=== PATIENT | male | born 1990 | race Two or more races ===

== ENCOUNTER 2023-02-03 14:29 | Inpatient (IN) | payer OTHER ==
[~2023-02-03] VITALS: Ht 182.9 cm; Wt 147.9 kg
[2023-02-03] MEDS: FUROSEMIDE 40 MG/4 ML VIAL IV SCH (01:00)
[2023-02-03 15:27] LABS: BASOPHILS % (AUTO) 0.4 % (0.0-2.0); EOSINOPHILS # (AUTO) 0.1 K/uL (0.0-0.7); EOSINOPHILS % (AUTO) 0.7 % (0.0-6.0); HEMATOCRIT 47 % (39-51); HEMOGLOBIN 16.2 g/dL (13.5-17.5); LYMPHOCYTES % (AUTO) 26.4 % (20.0-44.0); MEAN CORPUSCULAR HEMOGLOBIN 34 PG (26.0-33.0); MEAN CORPUSCULAR HGB CONC 34 g/dl (31.0-36.0); MEAN CORPUSCULAR VOLUME 101 fL (80-96); MONOCYTES # (AUTO) 1.7 K/uL (0.1-1.30); MONOCYTES % (AUTO) 22.1 % (2.0-12.0); NEUTROPHILS # (AUTO) 3.9 K/uL (1.8-8.9); NEUTROPHILS % (AUTO) 50.4 % (43.0-81.0); PLATELET COUNT (AUTO) 269 K/uL (150-450); RED BLOOD CELL COUNT(AUTO) 4.71 MIL/uL (4.5-6.0); WHITE BLOOD COUNT (AUTO) 7.7 K/uL (4.3-11.0)
[2023-02-03 15:48] LABS: CALCIUM, SERUM 9.3 mg/dL (8.5-10.1); CARBON DIOXIDE 26 mmol/L (21-32); CHLORIDE 101 mmol/L (98-107); CREATININE 0.9 mg/dL (0.6-1.3); GLUCOSE 115 mg/dL (74-106); POTASSIUM 3.6 mmol/L (3.5-5.1); SODIUM SERUM 136 mmol/L (136-145); UREA NITROGEN, BLOOD 5 mg/dL (7-18)
[2023-02-03 16:02] LABS: NT-PRO BNP 30 pg/mL (0-125)
[2023-02-03 16:36] LABS: ANISOCYTOSIS 1+; LYMPHOCYTES % (MANUAL) 26 % (16-48); MONOCYTES % (MANUAL) 16 % (0-11.0); NEUTROPHILS % (MANUAL) 57 (42-76); PLATELET ESTIMATE ADEQUATE; REACTIVE LYMPHOCYTES 1 % (0-0)
[2023-02-03] MEDS ORDERED: KETOROLAC TROMETHAMINE 15 MG/ML VIAL ONE (17:53)
[2023-02-03] MEDS ORDERED: KETOROLAC TROMETHAMINE INJ 30 MG/ML VIAL IV ONE (18:00)
[2023-02-03] MEDS ORDERED: IV NS 0.9% 1,000 ML BAG IV ONE (18:00)
[2023-02-03] MEDS ORDERED: IV NS 0.9% 250 ML IV ONE (19:44)
[2023-02-03] MEDS ORDERED: IOHEXOL-350 100 ML VIAL IV ONE ×2 (19:44)
[2023-02-03] MEDS ORDERED: CT SWABBABLE VALVE TRANS SET 1 EA INFUS.SET MC ONE (19:44)
[2023-02-03] MEDS ORDERED: METOPROLOL TARTRATE 25 MG TABLET PO ONE (23:00)
[2023-02-03] MEDS ORDERED: SULFAMETH/TRIMETH 800/160 MG 1 UDTAB TABLET PO ONE (23:00)
[2023-02-03] MEDS ORDERED: CEPHALEXIN MONOHYDRATE 500 MG CAPSULE PO ONE ×2 (23:00→23:18)
[2023-02-03] MEDS ORDERED: SULFAMETH/TRIMETH 800/160 MG 1 UDTAB TABLET ONE (23:18)
[2023-02-03] MEDS ORDERED: MAGNESIUM HYDROXIDE 30 ML UDC PO PRN (23:30)
[2023-02-03] MEDS ORDERED: MAG HYDROX/AL HYDROX/SIMETH 30 ML UDC PO PRN (23:30)
[2023-02-03] MEDS ORDERED: Z GUARD REMEDY 4 OZ OINT TP PRN (23:30)
[2023-02-03] MEDS ORDERED: ONDANSETRON HCL/PF 4 MG/2 ML VIAL IVP PRN (23:30)
[2023-02-04] MEDS ORDERED: FUROSEMIDE 40 MG/4 ML VIAL ONE (00:55)
[2023-02-04] MEDS ORDERED: METOPROLOL TARTRATE 25 MG TABLET ONE (00:55)
[2023-02-04 01:45] VITALS: BP 135/74; TEMP 98.2; O2SAT 98
[2023-02-04 02:00] VITALS: BP 135/94; TEMP 98.2; O2SAT 98
[2023-02-04 05:58] LABS: CALCIUM, SERUM 8.6 mg/dL (8.5-10.1); CREATININE 0.9 mg/dL (0.6-1.3); MAGNESIUM 2.5 mg/dL (1.8-2.4); PHOSPHORUS 3.4 mg/dL (2.5-4.9); POTASSIUM 4.1 mmol/L (3.5-5.1)
[2023-02-04 05:59] LABS: BASOPHILS % (AUTO) 0.2 % (0.0-2.0); EOSINOPHILS # (AUTO) 0.1 K/uL (0.0-0.7); EOSINOPHILS % (AUTO) 1.1 % (0.0-6.0); HEMATOCRIT 43 % (39-51); HEMOGLOBIN 14.9 g/dL (13.5-17.5); LYMPHOCYTES # (AUTO) 1.6 K/uL (0.8-4.8); LYMPHOCYTES % (AUTO) 25.6 % (20.0-44.0); MEAN CORPUSCULAR HEMOGLOBIN 35 PG (26.0-33.0); MEAN CORPUSCULAR HGB CONC 34 g/dl (31.0-36.0); MEAN CORPUSCULAR VOLUME 101 fL (80-96); MONOCYTES # (AUTO) 1.3 K/uL (0.1-1.30); MONOCYTES % (AUTO) 19.9 % (2.0-12.0); NEUTROPHILS # (AUTO) 3.4 K/uL (1.8-8.9); NEUTROPHILS % (AUTO) 53.2 % (43.0-81.0); PLATELET COUNT (AUTO) 210 K/uL (150-450); RED BLOOD CELL COUNT(AUTO) 4.28 MIL/uL (4.5-6.0); RED CELL DISTRIBUTION WIDTH 12.7 % (11.5-15.0); WHITE BLOOD COUNT (AUTO) 6.4 K/uL (4.3-11.0)
[2023-02-04 08:35] LABS: LYMPHOCYTES % (MANUAL) 26 % (16-48); MONOCYTES % (MANUAL) 20 % (0-11.0); NEUTROPHILS % (MANUAL) 54 (42-76); PLATELET ESTIMATE ADEQUATE
[2023-02-04 08:36] VITALS: BP 143/86; TEMP 98.6; O2SAT 97
[2023-02-04] MEDS ORDERED: METOPROLOL TARTRATE 25 MG TABLET PO SCH (09:00)
[2023-02-04] MEDS: FUROSEMIDE 40 MG/4 ML VIAL IV SCH (09:05)
[2023-02-04] MEDS: CEPHALEXIN MONOHYDRATE 500 MG CAPSULE PO SCH ×4 (09:22→20:30)
[2023-02-04 16:12] VITALS: BP 144/107; TEMP 99.3; O2SAT 100
[2023-02-04] MEDS: BACITRACIN ZINC OINT (15 GM) 15 GM TUBE TP SCH (17:18)
[2023-02-04] MEDS: METOPROLOL TARTRATE 25 MG TABLET PO SCH (17:19)
[2023-02-04] MEDS: APIXABAN 5 MG TABLET PO SCH (17:22)
[2023-02-04 20:00] VITALS: BP 123/91; TEMP 99.1; O2SAT 100
[2023-02-04 20:30] VITALS: BP 116/50; TEMP 98.2; O2SAT 100
[2023-02-04] MEDS: ACETAMINOPHEN 325 MG TABLET PO PRN (20:30)
[2023-02-05] VITALS: BP 122/90; TEMP 99; O2SAT 99
[2023-02-05 04:00] VITALS: BP 129/95; TEMP 98.8; O2SAT 98
[2023-02-05 08:00] VITALS: BP 138/96; TEMP 99.1; O2SAT 98
[2023-02-05] MEDS ORDERED: ACID1TAB12 PO (09:07)
[2023-02-05] MEDS ORDERED: CEPH500C2 PO (09:07)
[2023-02-05] MEDS ORDERED: HYDR-3972 PO (09:07)
[2023-02-05] MEDS ORDERED: APIX5TAB PO (09:12)
[2023-02-05] MEDS: FUROSEMIDE 40 MG/4 ML VIAL IV SCH (09:45)
[2023-02-05] MEDS: APIXABAN 5 MG TABLET PO SCH (09:46)
[2023-02-05] MEDS: CEPHALEXIN MONOHYDRATE 500 MG CAPSULE PO SCH ×2 (09:49→13:04)
[2023-02-05] MEDS: METOPROLOL TARTRATE 25 MG TABLET PO SCH (09:50)
[2023-02-05] MEDS: BACITRACIN ZINC OINT (15 GM) 15 GM TUBE TP SCH (09:50)
[2023-02-05] MEDS: ACETAMINOPHEN 325 MG TABLET PO PRN (10:34)
[2023-02-05] MEDS ORDERED: METO25TA6 PO (10:38)
[2023-02-05 11:27] VITALS: BP 145/105; TEMP 99; O2SAT 99
== END 2023-02-05 13:30 | disposition home or self-care (01) | DRG 383 ==
LOC: ER 14:50 → TRANSITION 02-04 00:39 → TELE 02-04 00:55
PROVIDERS: ADMIT Internal Medicine; ATTEND Nurse Practitioner Acute Care
DX: L03.115 Cellulitis of right lower limb (principal); E44.1 Mild protein-calorie malnutrition; I82.811 Embolism and thrombosis of superficial veins of right lower extremity; S81.802A Unspecified open wound, left lower leg, initial encounter; E66.01 Morbid (severe) obesity due to excess calories; R00.0 Tachycardia, unspecified; G89.29 Other chronic pain; I73.9 Peripheral vascular disease, unspecified; R60.9 Edema, unspecified; X58.XXXA Exposure to other specified factors, initial encounter; Y93.9 Activity, unspecified; Y92.009 Unspecified place in unspecified non-institutional (private) residence as the place of occurrence of the external cause; Z68.41 Body mass index [BMI] 40.0-44.9, adult; I83.12 Varicose veins of left lower extremity with inflammation; I83.11 Varicose veins of right lower extremity with inflammation
CPT/HCPCS: 36415; 71045-TC; 80048-TC; 83735-TC; 83880; 84100-TC; 84443-TC; 84484-TC; 85025-TC; 87040-TC; 93307-TC; 93970-TC; 93971-TC; 97112-TC; 97116-TC; 97530-TC; G0378; J1885; J1940; J7030; J7050; Q9967